=== PATIENT | female | born 1985 | race African-American/Black ===

== ENCOUNTER 2023-11-15 15:20 | Emergency (ER) | payer OTHER ==
[~2023-11-15] VITALS: Ht 172.7 cm; Wt 174.4 kg
[2023-11-15 15:40] VITALS: BP 142/80; PULSE 92; RESP 20; TEMP 97.5; O2SAT 98
[2023-11-15 16:18] VITALS: PULSE 83; PULSE 84; RESP 16; O2SAT 97
[2023-11-15] MEDS: ALBUTEROL 0.083% 2.5 MG/3 ML NEBU INH ONE (16:18)
[2023-11-15 16:53] LABS: FLU A ANTIGEN negative (NEGATIVE); FLU B ANTIGEN NEGATIVE (NEGATIVE)
[2023-11-15 17:08] LABS: BASOPHILS # (AUTO) 0.1 K/uL (0.00-0.22); BASOPHILS % (AUTO) 0.6 % (0.0-2.0); EOSINOPHILS # (AUTO) 0.5 K/uL (0-0.4); EOSINOPHILS % (AUTO) 4.5 % (0.0-4.0); HEMATOCRIT 37.3 % (36-48); HEMOGLOBIN 11.2 g/dL (12.0-16.0); LYMPHOCYTES % (AUTO) 32.8 % (20.5-51.1); MEAN CORPUSCULAR HEMOGLOBIN 22 pg (27-31); MEAN CORPUSCULAR HGB CONC 30 g/dL (33-37); MONOCYTES # (AUTO) 0.6 K/uL (0.8-1.0); MONOCYTES % (AUTO) 5.2 % (1.7-9.3); NEUTROPHILS # (AUTO) 6.9 K/uL (1.8-7.7); NEUTROPHILS % (AUTO) 56.9 % (42.2-75.2); PLATELET COUNT (AUTO) 306 K/uL (140-450); RED BLOOD CELL COUNT(AUTO) 5.18 MIL/uL (4.20-5.40); RED CELL DISTRIBUTION WIDTH 18.9 % (11.6-13.7); WHITE BLOOD COUNT (AUTO) 12.2 K/uL (4.8-10.8)
[2023-11-15 17:17] LABS: ANION GAP 10.1 (8-16); CALCIUM 8.1 mg/dL (8.5-10.1); CARBON DIOXIDE 31.2 mmol/L (21-32); CREATININE 1.1 mg/dL (0.6-1.3); POTASSIUM 3.3 mmol/L (3.5-5.1)
[2023-11-15] MEDS ORDERED: MUC600 PO (17:38)
[2023-11-15] MEDS ORDERED: OXYM20SP1 NS (17:38)
[2023-11-15] MEDS ORDERED: ALBU0.0912 IH (17:38)
[2023-11-15 17:45] VITALS: BP 113/72; PULSE 80; RESP 18; TEMP 97.5; O2SAT 98
== END 2023-11-15 17:45 | disposition home or self-care (01) ==
LOC: MED 15:20
DX: J06.9 Acute upper respiratory infection, unspecified (principal); B97.89 Other viral agents as the cause of diseases classified elsewhere; Z20.822 Contact with and (suspected) exposure to COVID-19; Z79.899 Other long term (current) drug therapy
CPT/HCPCS: 36415; 71045; 80048; 81025; 85025; 87426; 87804; 93005; 94640; 99285; J7613; Q0092; 99284